=== PATIENT | female | born 1990 | race Caucasian/White ===

== ENCOUNTER 2018-12-26 11:22 | Observation (INO) | payer BC ==
[2018-12-26] MEDS ORDERED: NA CHLORIDE 0.9% 1,000 ML ONE (12:31)
--- NOTE | 2018-12-26 12:39 | ER ---
Nurse's Notes [facility] Name: Marycruz Kim Age: 28 yrs Sex: Female : 1990 Arrival Date: 12/26/2018 Time: 11:25 Bed 8 Private MD: Shin Andrew Diagnosis: Postprocedural bleeding: tonsillectomy Presentation: 12/26 11:31 Presenting complaint: Had tonsillectomy by Dr. 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 Denies SOB. Transition of care: patient was not received from another setting of care. Onset of symptoms was December 26, 2018. Risk Assessment: Do you want to hurt yourself or someone else? Patient reports no desire to harm self or others. Initial Sepsis Screen: Does the patient meet any 2 criteria? No. Patient's initial sepsis screen is negative. Does the patient have a suspected source of infection? No. Patient's initial sepsis screen is negative. Care prior to arrival: None. 11:31 Method Of Arrival: Ambulatory hb 11:31 Acuity: TAYE 3 hb Historical: - Allergies: 11:32 Bactrim; hb 11:32 Flagyl; hb 11:32 Cipro; hb 11:32 Tizanidine; hb - Home Meds: 11:41 Lexapro Oral [Active]; jl7 - PMHx: 11:41 Depression; jl7 - PSHx: 11:32 Tonsillectomy; hb - Immunization history:: Adult Immunizations up to date. - Social history:: Smoking status: Patient/guardian denies using tobacco. - Ebola Screening: : No symptoms or risks identified at this time. Screenin:43 Abuse screen: Denies threats or abuse. Denies injuries from another. Nutritional jl7 screening: No deficits noted. Tuberculosis screening: No symptoms or risk factors identified. Fall Risk None identified. Assessment: 11:43 General: Appears in no apparent distress. uncomfortable, Behavior is calm, cooperative, jl7 appropriate for age. Pain: Complains of pain in throat Pain currently is 4 out of 10 on a pain scale. Neuro: Level of Consciousness is awake, alert, obeys commands, Oriented to person, place, time, situation. Cardiovascular: Patient's skin is warm and dry. Respiratory: Airway is patent Respiratory effort is even, unlabored, Respiratory pattern is regular, symmetrical. GI: Abdomen is flat, non-distended, Abd is soft X 4 quads Abd is non tender in left upper quadrant and left lower quadrant Abdomen is tender to palpation in right upper quadrant and right lower quadrant. : No signs and/or symptoms were reported regarding the genitourinary system. EENT: Reports "I feel blood going down the back of my throat." No blood visualized at this time.. Derm: Skin is pink, warm \\T\\ dry. 13:26 Reassessment: Pt requesting pain medication, ERP notified, see MAR for orders. jl7 Vital Signs: 11:32 BP 136 / 88; Pulse 92; Resp 16; Temp 98.3; Pulse Ox 100% on R/A; Weight 61.23 kg; hb Height 5 ft. 6 in. (167.64 cm); Pain 4/10; 12:59 BP 120 / 84; Pulse 78; Resp 17; Pulse Ox 98% on R/A; tw2 11:32 Body Mass Index 21.79 (61.23 kg, 167.64 cm) hb ED Course: 11:25 Patient arrived in ED. ag5 11:26 Shin Andrew MD is Private Physician. ag5 11:32 Triage completed. hb 11:32 Arm band placed on. hb 11:34 Alexy Guerrier RN is Primary Nurse. jl7 11:42 Dov Swanson NP is PHCP. pm1 11:42 Ward Goff MD is Attending Physician. pm1 11:43 Patient has correct armband on for positive identification. Bed in low position. Call jl light in reach. Side rails up X 1. 12:35 Jennifer Martell MD is Hospitalizing Provider. pm1 12:39 Inserted saline lock: 22 gauge in right antecubital area, using aseptic technique. tw2 14:06 No provider procedures requiring assistance completed. Patient admitted, IV remains in jl7 place. intact, No redness/swelling at site. Administered Medications: 12:39 Drug: NS 0.9% 1000 ml Route: IV; Rate: 125 ml/hr; Site: right antecubital; tw2 13:41 Follow up: IV Status: Infusion continued upon admission tw2 14:07 Follow up: IV Status: Infusion continued upon admission jl7 13:41 Drug: Zofran 4 mg Route: IVP; Site: right antecubital; jl7 14:07 Follow up: Response: No adverse reaction jl7 13:43 Drug: morphine 4 mg Route: IVP; Site: right antecubital; jl7 14:06 Follow up: Response: No adverse reaction; Pain is decreased jl7 Outcome: 12:38 Decision to Hospitalize by Provider. pm1 14:05 Admitted to Med/surg accompanied by tech, family with patient, via wheelchair, room [facility] 409, with chart, Report called to DANA Kent 14:05 Condition: stable 14:05 Discharge instructions given to patient, family, Instructed on the need for admit, Demonstrated understanding of instructions. 14:07 Patient left the ED. [facility] Signatures: Dov Swanson, ADRIANE INFORMATION SYSTEMS DIRECTOR pm1 Alejandrina Smith RN RN hb Anel You RN RN tw2 Alexy Guerrier RN RN jl7 Brandi Feldman ag5 Corrections: (The following items were deleted from the chart) 11:33 11:31 Presenting complaint: Had tonsillectomy by Dr. 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
--- NOTE | 2018-12-26 12:39 | EDPHYS ---
Physician Documentation [facility] Name: Marycruz Kim Age: 28 yrs Sex: Female : 1990 Arrival Date: 12/26/2018 Time: 11:25 Bed 8 Private MD: Shin Andrew ED Physician Ward Goff HPI: 12/26 12:01 This 28 yrs old Female presents to ER via Ambulatory with complaints of Post pm1 operative bleeding. 12:01 The patient presents with bleeding post tonsillectomy. Onset: The symptoms/episode pm1 began/occurred just prior to arrival. Severity of symptoms: in the emergency department the symptoms have improved. Modifying factors: The symptoms are alleviated by nothing, the symptoms are aggravated by swallowing. Associated signs and symptoms: Pertinent negatives chest pain, fever, shortness of breath. Patient with tonsillectomy this AM with Dr. Martell. Patient got home and episode of cough and she spit up blood that filled up a napkin. Patient's bleeding has decreased and her spit just has a tinge of blood in it now. Has contacted Dr. Martell on ER arrival and reports that she will see her in the ER. Historical: - Allergies: 11:32 Bactrim; hb 11:32 Flagyl; hb 11:32 Cipro; hb 11:32 Tizanidine; hb - Home Meds: 11:41 Lexapro Oral [Active]; jl7 - PMHx: 11:41 Depression; jl7 - PSHx: 11:32 Tonsillectomy; hb - Immunization history:: Adult Immunizations up to date. - Social history:: Smoking status: Patient/guardian denies using tobacco. - Ebola Screening: : No symptoms or risks identified at this time. ROS: 12:01 Constitutional: Negative for fever, chills, and weight loss, Eyes: Negative for injury, pm1 pain, redness, and discharge, Neck: Negative for injury, pain, and swelling, Cardiovascular: Negative for chest pain, palpitations, and edema, Respiratory: Negative for shortness of breath, cough, wheezing, and pleuritic chest pain, Abdomen/GI: Negative for abdominal pain, nausea, vomiting, diarrhea, and constipation, Back: Negative for injury and pain, MS/Extremity: Negative for injury and deformity, Skin: Negative for injury, rash, and discoloration. 12:01 ENT: Positive for sore throat, Negative for ear pain. Exam: 12:01 Constitutional: This is a well developed, well nourished patient who is awake, alert, pm1 and in no acute distress. Head/Face: Normocephalic, atraumatic. Eyes: Pupils equal round and reactive to light, extra-ocular motions intact. Lids and lashes normal. Conjunctiva and sclera are non-icteric and not injected. Cornea within normal limits. Periorbital areas with no swelling, redness, or edema. ENT: Nares patent. No nasal discharge, no septal abnormalities noted. Tympanic membranes are normal and external auditory canals are clear. Oropharynx with no redness, swelling, or masses, exudates, or evidence of obstruction, uvula midline. Mucous membranes moist. Neck: Trachea midline, no thyromegaly or masses palpated, and no cervical lymphadenopathy. Supple, full range of motion without nuchal rigidity, or vertebral point tenderness. No Meningismus. Chest/axilla: Normal chest wall appearance and motion. Nontender with no deformity. No lesions are appreciated. Cardiovascular: Regular rate and rhythm with a normal S1 and S2. No gallops, murmurs, or rubs. Normal PMI, no JVD. No pulse deficits. Respiratory: Lungs have equal breath sounds bilaterally, clear to auscultation and percussion. No rales, rhonchi or wheezes noted. No increased work of breathing, no retractions or nasal flaring. Abdomen/GI: Soft, non-tender, with normal bowel sounds. No distension or tympany. No guarding or rebound. No evidence of tenderness throughout. Back: No spinal tenderness. No costovertebral tenderness. Full range of motion. Skin: Warm, dry with normal turgor. Normal color with no rashes, no lesions, and no evidence of cellulitis. MS/ Extremity: Pulses equal, no cyanosis. Neurovascular intact. Full, normal range of motion. 12:01 Neuro: Orientation: is normal, Motor: is normal, Sensation: is normal, no obvious gross deficits. Vital Signs: 11:32 BP 136 / 88; Pulse 92; Resp 16; Temp 98.3; Pulse Ox 100% on R/A; Weight 61.23 kg; hb Height 5 ft. 6 in. (167.64 cm); Pain 4/10; 12:59 BP 120 / 84; Pulse 78; Resp 17; Pulse Ox 98% on R/A; tw2 11:32 Body Mass Index 21.79 (61.23 kg, 167.64 cm) hb MDM: 11:50 Patient medically screened. pm1 12:25 Data reviewed: vital signs. Data interpreted: Pulse oximetry: on room air is 100 %. pm1 Interpretation: normal. 12:25 Physician consultation: Jennifer Martell MD in the emergency department to see patient pm1 at 12:20, Place patient in observation under Dr. Martell. NPO, IV fluids, IV pain medications, Call for any additional bleeding, Will perform reevaluation at 1700. 08 12:24 Order name: NPO; Complete Time: 12:43 pm1 12/26 12:24 Order name: IV Saline Lock; Complete Time: 12:39 pm1 Administered Medications: 12:39 Drug: NS 0.9% 1000 ml Route: IV; Rate: 125 ml/hr; Site: right antecubital; tw2 13:41 Follow up: IV Status: Infusion continued upon admission tw2 14:07 Follow up: IV Status: Infusion continued upon admission jl7 13:41 Drug: Zofran 4 mg Route: IVP; Site: right antecubital; jl7 14:07 Follow up: Response: No adverse reaction jl7 13:43 Drug: morphine 4 mg Route: IVP; Site: right antecubital; jl7 14:06 Follow up: Response: No adverse reaction; Pain is decreased jl7 Disposition: 12/27 07:21 Co-signature as Attending Physician, Ward Goff MD I agree with the assessment and kdr plan of care. Disposition: 12/26/18 12:38 Hospitalization ordered by Jennifer Martell for Observation. Preliminary diagnosis is Postprocedural bleeding: tonsillectomy. - Bed requested for Telemetry/MedSurg (observation). - Status is Observation. jl7 - Condition is Stable. - Problem is new. - Symptoms have improved. UTI on Admission? No Signatures: Yu Hauser Kevin, MD MD kdr Marinas, Patrick, NP BARBER APPRENTICE pm1 Alejandrina Smith RN RN Anel You RN RN tw2 Alexy Guerrier RN RN jl7 Corrections: (The following items were deleted from the chart) 12/26 13:38 12:38 Hospitalization Ordered by Jennifer Martell MD for Observation. Preliminary bd diagnosis is Postprocedural bleeding: tonsillectomy. Bed requested for Telemetry/MedSurg (observation). Status is Observation. Condition is Stable. Problem is new. Symptoms have improved. UTI on Admission? No. pm1 14:07 13:38 12/26/2018 12:38 Hospitalization Ordered by Jennifer Martell MD for Observation. jl7 Preliminary diagnosis is Postprocedural bleeding: tonsillectomy. Bed requested for Telemetry/MedSurg (observation). Status is Observation. Condition is Stable. Problem is new. Symptoms have improved. UTI on Admission? No. bd
[2018-12-26] MEDS ORDERED: MORPHINE 4 MG/ML SYR ONE (13:25)
[2018-12-26] MEDS ORDERED: ONDANSETRON 4 MG/2 ML VIAL ONE (13:25)
[2018-12-26 14:21] VITALS: BMI 21.1
[2018-12-26] MEDS: NA CHLORIDE 0.9% 1,000 ML IV SCH ×2 (14:40→20:07)
[2018-12-26] MEDS: MORPHINE 4 MG/ML SYR IV PRN ×2 (17:09→20:46)
[2018-12-26] MEDS: ONDANSETRON 4 MG/2 ML VIAL IV PRN ×2 (17:10→20:46)
[2018-12-26] MEDS ORDERED: DIPHENHYDRAMINE 12.5MG/5ML LIQ PO ONE (22:44)
[2018-12-27] MEDS: HYDROCODONE/APAP 7.5/325 MG TAB PO PRN ×2 (01:27→06:26)
[2018-12-27] MEDS: NA CHLORIDE 0.9% 1,000 ML IV SCH (03:22)
[2018-12-27 07:49] VITALS: O2SAT 98
[2018-12-27 12:18] VITALS: BP 110/73; TEMP 97.4
--- NOTE | 2018-12-28 05:12 | SS ---
Date of Discharge: 12/27/2018 Admission Diagnosis: Primary hemorrhage following tonsillectomy. Postoperative Diagnosis: Primary hemorrhage following tonsillectomy. Chief Complaint: Coughing up blood. History Of Present Illness: Marycruz Kim is a 28-year-old who underwent tonsillectomy for tonsil st ones and chronic tonsillitis at [facility] on the morning of 12/26/2018 with me. The surgery was uncomplicated, but the patient did have moderate oozing from the right mid tonsilla r fossa during the procedure, which was treated with tamponade with a tonsil sponge soaked in epineph rine followed by cauterization. The bleeding was well controlled. At the conclusion of the surgery, the patient was successfully extubated and underwent routine recovery in the postanesthesia unit and was discharged home. Approximately 2 hours following the procedure, the patient was at home in [place] with her family and coughed up a mouth full of fresh blood. She contacted my office and was ins tructed to come to the emergency room for evaluation. At the time of my evaluation in the emergency room at approximately 12:30, the patient was calm, hemodynamically stable, and had a thin clot in the area of the right tonsillar fossa, but no active bleeding. Treatment options were considered, and i n light of patient's stable status and lack of active bleeding, decision was made for observation. D ue to the clot and potentially unstable situation, recommendation was made for observation in-house a s she and her family were agreeable. The patient underwent placement of peripheral IV for hydration and pain medications. She was kept n.p.o. and instructed to notify nursing and medical staff for any additional bleeding. I re-evaluated the patient at approximately 6 p.m. At that time, she remained without active bleeding and had a persistent thin clot in the right tonsillar fossa. Again, due to lack of active bleeding with presence of a thin clot, decision was made to continue observation overn ight. She was started on clear liquid diet. Overnight, the patient had expected degree of pain and difficulty sleeping, but tolerated ice chips and water. She felt apple juice produced excess mucus i n her throat and preferred plain water at this time. She did not have any bleeding overnight. This morning at approximately 7:15, the patient was re-examined by me. At that time, the right tonsillar fossa clot had resolved. There was no evidence of blood or bleeding. The oropharynx had the expecte d appearance of a postop day #1 tonsillectomy with erythema and lkrv-vg-eoudiuoj edema of the midline soft palate and uvula with early eschar formation in the tonsillar fossa. The patient appeared to b e doing well and was felt fit for discharge. Disposition: Patient will be discharged home later today with clear liquid diet and soft foods as to lerated. She has pain medication prescribed at the time of her surgery and no new prescriptions are necessary. The patient can resume her home medications, but should avoid aspirin. She should restri ct herself to activities of daily living and avoid strenuous or vigorous activity and refrain from he brenda lifting for a period of 14 days. She is instructed to contact Dr. Martell for any further bleedi ng issues and will follow up with Dr. Martell's office on a routine basis in approximately 1 month. LIANA Voice ID: [id number] Report ID: [id number]
== END 2018-12-27 08:47 | disposition home or self-care (01) ==
LOC: ER 11:22 → ERHOLD 12:39 → 4TH 13:59
PROVIDERS: ADMIT Otolaryngology; ATTEND Otolaryngology
DX: J95.830 Postprocedural hemorrhage of a respiratory system organ or structure following a respiratory system procedure (principal); F32.9 Major depressive disorder, single episode, unspecified; Z79.899 Other long term (current) drug therapy
CPT/HCPCS: 96361; 96375; 96374; 99285; J7030 ×3; J2405 ×3; G0378 ×2

== ENCOUNTER 2018-12-28 05:41 | Day surgery (SDC) | payer BC ==
[2018-12-28] MEDS ORDERED: SUCCINYLCHOLINE 20 MG/ML (10 ML) IV ONE (05:42)
[2018-12-28] MEDS ORDERED: ROCURONIUM 50 MG/5 ML VIAL IV ONE (06:06)
[2018-12-28] MEDS ORDERED: FENTANYL CITR 100 MCG/2 ML ONE (06:06)
[2018-12-28] MEDS ORDERED: PROPOFOL 200 MG/20 ML VIAL IV ONE (06:06)
[2018-12-28] MEDS ORDERED: BUPIVACA 0.5%/EPI 0.0005%/PF 10 ML VIAL ONE (06:12)
[2018-12-28] MEDS ORDERED: EPINEPHRINE/PF 1 MG/ML AMP ONE (06:12)
[2018-12-28] MEDS ORDERED: GLYCOPYRROLATE 0.2 MG/ML SYR ONE (06:14)
[2018-12-28] MEDS ORDERED: ONDANSETRON 4 MG/2 ML VIAL ONE (06:36)
[2018-12-28] MEDS ORDERED: dexAMETHasone 4 MG/ML VIAL ONE (06:36)
[2018-12-28] MEDS: MEPERIDINE HCL 25 MG/0.5 ML ONE ×2 (06:59→07:20)
[2018-12-28] MEDS: HYDROMORPHONE HCL 1 MG/ML INJ ONE ×4 (07:07→07:30)
--- NOTE | 2018-12-28 07:12 | P.BOP ---
Preoperative diagnosis: secondary post-tonsillectom hemorrhage Postoperative diagnosis: same Primary procedure: EUA and control of bleeding Potato Peeler: NONE,NONE Estimated blood loss: 10ml Specimen: none Findings: R fossa bleeding Anesthesia: General Complications: None Implants: none Fluids & blood products: 1L crystalloid Transferred to: Recovery Room Condition: Good
[2018-12-28 08:02] VITALS: BP 126/88; TEMP 99.1; O2SAT 95
[2018-12-28] MEDS ORDERED: HYDROCOD 2.5mg-ACETAMIN 108mg/5mL Soln ONE (08:10)
--- NOTE | 2018-12-28 18:04 | OP ---
Date of Procedure: 12/28/2018 Surgeon: Jennifer Martell MD Preoperative Diagnosis: Secondary post-tonsillectomy hemorrhage. Postoperative Diagnosis: Secondary post-tonsillectomy hemorrhage. Procedure: Exam under anesthesia and control of posttonsillectomy hemorrhage via secondary surgical intervention. Indication For Procedure: Ms. Marycruz Kim had bilateral tonsillectomy performed on December 26, for chronic tonsillitis. Approximately 2 hours following the surgery, she presented with mild hem orrhage, which stopped spontaneously. She was hydrated with IV fluids and observed for approximately 23 hours. At that time, the clot in the right tonsillar fossa had resolved, and the patient had had no further bleeding and was discharged home. Approximately 46 hours after the procedure, the patien t awoke from sleep and began coughing up substantial amounts of blood. She contacted the on-call milly ramonian and was instructed to proceed to the emergency room for evaluation and secondary operative int ervention. Description Of Procedure: The patient was brought to the operating room. She was placed under gener al anesthesia via oral endotracheal tube. The head of bed was turned 90 degrees. A shoulder roll an d head drape were applied. The McIvor mouth gag was used to expose the oropharynx and suspended from the Rodríguez stand. The oropharynx had expected degree of edema and erythema of the soft palate and uvu la. The left tonsillar fossa showed a stable and normal appearing eschar with no evidence of clot or bleeding. The right tonsillar fossa was filled with clot, but there was no active bleeding. The cl ot was gently suctioned and removed, and the superior medial aspect of the tonsillar fossa began blee ding. A tonsil sponge was used to apply pressure to the tonsillar fossa for approximately 5 minutes. After removal of the tonsil ball, the initial area of bleeding appeared hemostatic, but there were 2 areas in the mid to lower and lateral tonsillar fossa, which appeared to have ragqbita-fg-wifkj ble eding. A tonsil sponge was again used to apply pressure including pressure laterally to these areas for approximately 10 minutes. After removal of the tonsil ball, the bleeding was substantially less, and the 2 areas were cauterized with a suction Bovie. The areas appeared hemostatic. The McIvor mo uth gag was relaxed for several minutes to allow for relaxation of the tissues. After resuspension, the right tonsillar fossa remained hemostatic. An orogastric tube was passed to the stomach, where s ecretions and small amounts of old blood were suctioned. A red rubber catheter was passed through th e bilateral nostrils for suctioning of a small amount of blood from behind the soft palate and nasoph arynx. Re-examination of the tonsillar fossa revealed continued hemostasis with no evidence of oozin g or bleeding. The McIvor mouth gag was then removed, and the patient was returned to care of Anesth esia for awakening, extubation, which proceeded without difficulty. Findings: Right tonsillar fossa bleeding area x3, treated with direct pressure and electrocautery. Disposition: I spoke with the and he felt the patient would prefer to be discharged to home. They are comfortable returning to the facility should any additional bleeding occur. Patient will therefore be discharged to home and follow up with Dr. Martell in 1 month or sooner if any additional bleeding occurs. MAIA/JESSIE Voice ID: [id number] Report ID: [id number]
== END 2018-12-28 08:36 | disposition home or self-care (01) ==
LOC: OR 05:41
PROVIDERS: ATTEND Otolaryngology
PROC: 0W33XZZ Control Bleeding in Oral Cavity and Throat, External Approach (ICD-10-PCS; principal; 2018-12-28 05:58)
DX: I97.620 Postprocedural hemorrhage of a circulatory system organ or structure following other procedure (principal); Y83.9 Surgical procedure, unspecified as the cause of abnormal reaction of the patient, or of later complication, without mention of misadventure at the time of the procedure; Z88.3 Allergy status to other anti-infective agents
CPT/HCPCS: 42960; J2704; J0330; J3010; J2175; J1170 ×2; J2405; J0171

== ENCOUNTER 2019-01-05 03:02 | Day surgery (SDC) | payer BC ==
[2019-01-05] MEDS ORDERED: SUCCINYLCHOLINE 20 MG/ML (10 ML) IV ONE (03:29)
[2019-01-05] MEDS ORDERED: PROPOFOL 200 MG/20 ML VIAL IV ONE (03:36)
[2019-01-05] MEDS ORDERED: FENTANYL CITR 100 MCG/2 ML ONE (03:38)
[2019-01-05] MEDS ORDERED: LIDOCAINE 2% MPF 5 ML VIAL ONE (03:39)
[2019-01-05] MEDS ORDERED: MORPHINE 4 MG/ML SYR IV PRN (04:04)
[2019-01-05] MEDS: BUPIVACA 0.5%/EPI 0.0005%/PF 10 ML VIAL ONE ×3 (04:08→04:32)
[2019-01-05] MEDS ORDERED: Ringers Lactate 1,000 ML IV ONE (04:14)
[2019-01-05] MEDS ORDERED: ONDANSETRON 4 MG/2 ML VIAL ONE (04:18)
--- NOTE | 2019-01-05 04:44 | P.BOP ---
Preoperative diagnosis: secondary post-tonsillectomy hemorrhage Postoperative diagnosis: same Primary procedure: EAU and surgical control of bleeding Senior Search Marketing Analyst: NONE,NONE Estimated blood loss: <10ml Specimen: none Findings: L upper bleeding, granulationof B fossa friability Anesthesia: General Complications: None Implants: none Fluids & blood products: crystalloid 600ml Transferred to: Recovery Room Condition: Good
[2019-01-05 04:55] LABS: Absolute Lymphocytes (CBC) 2.4 K/uL (0.7-4.9); Basophils % 0.3 % (0-1.3); Hematocrit 40.7 % (36.0-45.0); Lymphocytes % 40.3 % (15.3-44.8); MPV 9.4 fL (7.6-11.3); RBC Red Blood Cell Count 4.35 M/uL (3.86-4.86)
[2019-01-05] MEDS ORDERED: Ringers Lactate 1,000 ML IV SCH (05:00)
[2019-01-05] MEDS: HYDROMORPHONE HCL 1 MG/ML INJ ONE ×6 (05:04→05:35)
[2019-01-05 05:06] LABS: Protime INR 0.95
[2019-01-05] MEDS ORDERED: dexAMETHasone 10 MG/ML VIAL ONE (05:16)
[2019-01-05 05:42] VITALS: TEMP 97.3
[2019-01-05 06:19] VITALS: BP 126/83; O2SAT 98
--- NOTE | 2019-01-05 15:50 | OP ---
Date of Procedure: 01/05/2019 Surgeon: Jennifer Martell MD Preoperative Diagnosis: Secondary postoperative hemorrhage. Postoperative Diagnosis: Secondary postoperative hemorrhage. Procedure: Exam under anesthesia and control of postoperative hemorrhage. Indication For Procedure: Marycruz Kim is a 28-year-old who underwent a tonsillectomy on Wednesday, Au im[place] 5. Her postoperative course was complicated by post tonsillectomy hemorrhage on day of surgery, controlled with conservative measures and observation with resolution. She later presented with pos toperative hemorrhage on postoperative day 2 and underwent secondary intervention with finding of ble eding from the right lateral tonsillar fossa. The patient did well at home. Over the last 2-3 days, she had isolated episodes of coughing up scant blood-streaked saliva, but no active bleeding. At ap proximately 2:30 a.m., the patient woke up and was coughing and spitting up moderate amounts of blood . She contacted the on-call provider and was instructed to proceed to the emergency room. Due to th e amount of bleeding, decision was made to proceed with operative intervention. Description Of Procedure: The patient was brought to the operating room. She was placed under gener al anesthesia via oral endotracheal tube. The head of bed was turned 90 degrees. A shoulder roll wa s placed. Head drape was applied. McIvor mouth gag was used to expose the oropharynx. The bilatera l tonsillar fossas appeared granulated, consistent with postoperative day 10 appearance and there was clot and a small amount of fresh blood in the left tonsillar fossa. This was carefully suctioned an d moderately brisk bleeding was noted in the upper most portion of the left tonsillar fossa. This ar ea was treated with direct pressure using the tonsil sponge for several minutes, which significantly improved the bleeding. The adjacent granulation tissue on the lateral portion of the fossa, however, was irritated by the tonsil sponge and was oozing. This area was then cauterized. There was a smal l laceration on the dorsal surface of the right tongue that was oozing and this area was lightly caut erized. The stomach contents were suctioned using a orogastric tube and there was old blood, gastric contents, and fragments of undigested food that were removed. The oral cavity was irrigated with co ld saline. There was concern for a degree of granulation tissue and a peanut sponge was soaked with Marcaine with epinephrine and applied to the upper portion of the left tonsillar fossa. There was al so a small amount of blood in the right inferior tonsillar fossa, likely bleeding from abrasion of th e granulation tissue. A peanut sponge soaked with Marcaine with epinephrine was applied to this area for a few minutes and light cauterization was applied. This resulted in good hemostasis. The peanu t sponges were removed and the bilateral soft palate above the tonsillar fossa was injected with Balaji reinaldo with epinephrine to aid in postoperative pain control. The patient's oral cavity was again irri gated with cold saline and there was no evidence of further bleeding. The saline was suctioned. A r ed rubber catheter was used to suction the patient's nasopharynx. The procedure was concluded and th e patient was returned to care of anesthesia for awakening and extubation in the operating room, whic h proceeded without difficulty. Complications: None. Surgical Findings: Bleeding from the left superior tonsillar fossa was found to be the likely source of the patient's bleeding at home with bilateral cauterization applied to areas of granulation and o ozing. Disposition: The patient will be transferred to the recovery room and if she does well, she can be d ischarged home and contact Dr. Martell for any further problems. MAIA/JESSIE Voice ID: [id number] Report ID: [id number]
== END 2019-01-05 06:13 | disposition home or self-care (01) ==
LOC: OR 03:02
PROVIDERS: ATTEND Otolaryngology
PROC: 0W33XZZ Control Bleeding in Oral Cavity and Throat, External Approach (ICD-10-PCS; principal; 2019-01-05 04:00)
DX: I97.620 Postprocedural hemorrhage of a circulatory system organ or structure following other procedure (principal); Y83.9 Surgical procedure, unspecified as the cause of abnormal reaction of the patient, or of later complication, without mention of misadventure at the time of the procedure; Z88.3 Allergy status to other anti-infective agents
CPT/HCPCS: 85025; 36415; 85610; 85730; 42960; J2704; J0330; J3010; J1100; J1170 ×3; J2405